=== PATIENT | male | born 1970 | race Two or more races ===

== ENCOUNTER 2017-03-31 17:33 | Inpatient (IN) | payer BC ==
[~2017-03-31] VITALS: Ht 175.3 cm; Wt 82.6 kg
--- NOTE | 2017-03-31 17:40 | NUR ---
AT BEDSIDE FOR EVAL.
--- NOTE | 2017-03-31 17:41 | NUR ---
RT AT BEDSIDE FOR BLOOD GAS.
--- NOTE | 2017-03-31 17:49 | NUR ---
DR MATHEW AT BEDSIDE FOR EVAL AND CHECKING PT HEART VIA ULTRASOUND.
--- NOTE | 2017-03-31 17:51 | NUR ---
X-RAY AT BEDSIDE.
--- NOTE | 2017-03-31 17:54 | NUR ---
CALLED PHARMACY AND SPOKE WITH KENTRELL RODARTERDING EPI ORDER, WILL MAKE PER ORDERS PER KENTRELL.
[2017-03-31 18:23] LABS: BASOPHIL % 0.6 % (0-2); PLATELET COUNT 332 x10^3mcL (130-400); RED CELL DISTRIBUTION WIDTH 12.7 % (11.5-14.5)
--- NOTE | 2017-03-31 18:27 | NUR ---
AWAKE ALERT ,RESP. MUCH BETTER MORE AIR ENTRY,POST BREATHING TREATMENT, IV EPI.DRIP STARTED AT 10MCG/MINUTE THEN REDUCED TO 4 MCG /MINUTE.
[2017-03-31 18:31] LABS: CALCIUM 8.2 mg/dL (8.5-10.1); CARBON DIOXIDE 22.6 mmol/L (21-32); CREATININE SERUM 1.4 mg/dL (0.7-1.3); POTASSIUM SERUM 3.2 mmol/L (3.5-5.1)
[2017-03-31 18:35] LABS: ALBUMIN 3.2 g/dL (3.4-5.0); BILIRUBIN TOTAL 0.5 mg/dL (0.20-1.00); TOTAL PROTEIN, SERUM 6.8 g/dL (6.4-8.2)
--- NOTE | 2017-03-31 18:35 | NUR ---
REEVALUATED,BREATH SOUNDS CLEAR BUT DIMINISHED,STATES RESP.MUCH EASIER,ON CONTINUOUS BREATHING TREATMENT WITH ALBUTEROL
[2017-03-31] MEDS ORDERED: PULMICORT180 MCG/A2 IH (18:42)
[2017-03-31] MEDS ORDERED: PROAIR HFA8.5 GM IH (18:43)
[2017-03-31 18:44] LABS: MAGNESIUM 1.9 mg/dL (1.8-2.4); PHOSPHOROUS 5.8 mg/dL (2.5-4.9)
[2017-03-31] MEDS ORDERED: PREDNISONE20 MG PO (18:44)
--- NOTE | 2017-03-31 19:24 | NUR ---
RECEIVED REPORT FROM JOSH CAMPBELL. PT IN NAD
--- NOTE | 2017-03-31 20:47 | NUR ---
PT TRANSPORTED TO [facility] VIA [facility] ON CM BY PAWEL CAMPBELL AND FRANCK EMT. PT IN NAD
[2017-03-31 21:12] VITALS: BP 108/64
[2017-03-31 21:13] LABS: FREE T4 1.01 ng/dL (0.76-1.46); FREE THYROXINE INDEX 2.1 ug/dL (1.4-4.5); T3 TOTAL 0.81 ng/mL; T4(THYROXINE) 6.1 ug/dL (4.7-13.3)
--- NOTE | 2017-03-31 21:15 | NUR ---
RECEIVED PT FROM ED VIA [facility]. ORIENTED PT TO ROOM AND SURROUDNIGNS. IV NOTED TO LAC PATENT AND INTACT. TELE 15 PLACED ON PT READING STA. INSTRUCTED PT ON THE USE OF CALL LIGHT FOR ASSISTANCE. ENDORSED PT TO PRIMARY NURSE MAREK
--- NOTE | 2017-03-31 21:21 | NUR ---
RECEIVED REPORT FROM ED AND RESOURCE RN SURU. IV SITE TO LEFT AC, PATENT AND INTACT. IV FLUID STARTED PER DOCTOR'S ORDER. NO DISTRESS NOTED. PATIENT DENIES PAIN/DISCOMFORT. PATIENT ORIENTED TO ROOM AND CALL LIGHT. BED IN LOWEST POSITION. CALL LIGHT WITHIN REACH. WILL CONTINUE TO MONITOR.
[2017-03-31] MEDS ORDERED: VOLTAREN-XR100 MG PO (22:44)
[2017-03-31] MEDS ORDERED: ADULT LOW DOSE81 MG PO (22:44)
[2017-03-31] MEDS ORDERED: EPZICOM1 TAB (22:45)
[2017-03-31] MEDS ORDERED: COMINH INH (22:45)
[2017-03-31] MEDS ORDERED: LIPITOR10 MG (22:46)
[2017-04-01 01:20] VITALS: BP 108/64
--- NOTE | 2017-04-01 05:08 | NUR ---
PATIENT RESTED THROUGHOUT THE NIGHT. NO DISTRESS NOTED. SAFETY AND COMFORT MEASURES MAINTAINED. BED IN LOWEST POSITION. CALL LIGHT WITHIN REACH. WILL CONTINUE TO MONITOR AND ENDORSE TO NEXT SHIFT NURSE.
[2017-04-01 06:48] VITALS: BP 114/66
[2017-04-01 07:16] LABS: BASOPHIL % 0.1 % (0-2); PLATELET COUNT 274 x10^3mcL (130-400)
[2017-04-01 07:49] LABS: CALCIUM 8.6 mg/dL (8.5-10.1); CARBON DIOXIDE 20.7 mmol/L (21-32); CHLORIDE SERUM 106 mmol/L (98-107); CREATININE SERUM 1.1 mg/dL (0.7-1.3); GFR1 > 60 mL/min; GLUCOSE SERUM 109 mg/dL (74-106); MAGNESIUM 1.8 mg/dL (1.8-2.4); PHOSPHOROUS 2.5 mg/dL (2.5-4.9); POTASSIUM SERUM 4.6 mmol/L (3.5-5.1); SODIUM SERUM 137 mmol/L (136-145)
--- NOTE | 2017-04-01 07:50 | NUR ---
RECEIVED PT IN BED. ASSESSED AND DOCUMENTED. DENIES PAIN THIS TIME. NO SOB NOTED. SAFTEY PRECAUTIONS ON. WILL MONITOR.
--- NOTE | 2017-04-01 08:30 | NUR ---
AND RESIDENTS DID ROUNDS. EXPLAINED THE PLAN OF CARE AND ANSWERED ALL PT'S QUESTIONS.
[2017-04-01] MEDS ORDERED: CLA10 PO (08:47)
[2017-04-01] MEDS ORDERED: BENADRYL ALLERG25 M1 PO (08:48)
[2017-04-01] MEDS ORDERED: EPIPEN JR 20.5 MG/ML MR (08:53)
[2017-04-01 09:59] VITALS: BP 118/69
[2017-04-01 11:26] VITALS: BP 118/69
[2017-04-01 11:57] VITALS: Ht 175.3 cm; Wt 82.6 kg
--- NOTE | 2017-04-01 12:00 | NUR ---
DISCHARGE INSTRUCTIONS AND PRESCRIPTIONS GIVEN.PB SIGNED AND SENT WITH PT. IV AT LAC AND LT HAND REMOVED AND DRESSING APPLIED. DENIES SOB. DENIES ANY PAIN. PT STARTED TO BLEED FROM LAC IV SITE. PRESSURE DRESSING APPLIED BUT STILL BLEEDING. APPLIED PRESSURE FOR 15 MINUTE AND ELEVATE THE ARM TO HEART LEVEL. AFTER THAT APPLIED PRESSURE DRESSING WITH 4X4 GAUZE AND KARUNA WRAP. LUNCH ARRIVED .PT SAID HE WILL SIT AND EAT LUNCH AND GO HOME. WILL CONTINUE MONITOR.
--- NOTE | 2017-04-01 12:50 | NUR ---
PT SAID HE IS READY TO GO. OFFERED WHEELCHAIR BUT PT REFUSED AND STATED HE WANTS TO WALK.STUDENT NURSE WALKED WITH PT TO LOBBY ACCOMPANIED WITH PT'S FAMILY. PT DC HOME.
== END 2017-04-01 12:50 | disposition home or self-care (01) | DRG 189 ==
LOC: ED 17:33 → DU 19:22
PROVIDERS: Emergency Medicine; ADMIT Family Medicine
DX: J96.00 Acute respiratory failure, unspecified whether with hypoxia or hypercapnia (principal); N17.0 Acute kidney failure with tubular necrosis; E46 Unspecified protein-calorie malnutrition; J45.909 Unspecified asthma, uncomplicated; E78.00 Pure hypercholesterolemia, unspecified; Z79.82 Long term (current) use of aspirin; Z88.8 Allergy status to other drugs, medicaments and biological substances; Z91.011 Allergy to milk products; Z91.012 Allergy to eggs; Z91.010 Allergy to peanuts; Z91.018 Allergy to other foods; Z83.3 Family history of diabetes mellitus; Z80.3 Family history of malignant neoplasm of breast; R73.03 Prediabetes; E87.6 Hypokalemia; Z68.26 Body mass index [BMI] 26.0-26.9, adult; E78.5 Hyperlipidemia, unspecified; E02 Subclinical iodine-deficiency hypothyroidism; T50.995A Adverse effect of other drugs, medicaments and biological substances, initial encounter; E66.9 Obesity, unspecified
CPT/HCPCS: 36600; 82962; 83880; 84439; 94150; J0171; J1200; J2930; J3490; J7030; J7613; J7620